=== PATIENT | male | born 1995 | race Caucasian/White ===

== ENCOUNTER 2018-01-21 10:59 | Emergency (ER) | payer OTHER, MEDICAID, SELFPAY ==
[2018-01-21 11:10] VITALS: BP 116/71; PULSE 73; RESP 18; TEMP 36.3; O2SAT 98; BMI 32.5
--- NOTE | 2018-01-21 11:32 | PC.NURSE ---
genital evaluation, deferred to physician.
[2018-01-21 11:41] LABS: RBC Urine None Seen (0-5/HPF)
--- NOTE | 2018-01-21 11:47 | ED_ITS ---
HPI - Male Genitourinary General Chief complaint: Urogenital-Male Stated complaint: DOUBLE EAR INFECTION,GUSTAVO ON FIRE Time Seen by Provider: 01/21/18 11:06 Source: patient Mode of arrival: ambulatory Limitations: no limitations History of Present Illness HPI Narrative: 22-year-old male here for evaluation of bilateral ear pain concern for ear infection and also approximately 1 month of dysuria and burning at the tip of his penis. Patient states that he has been treated multiple times for bilateral ear infections. He states that despite the antibiotics things have not improved all that much. He has been told he needs to see ear nose and throat however due to issues with primary care he has not done this. He also states that over the past month he has been tested 2 times for gonorrhea and chlamydia and also HIV. He reports that these have all come back negative. I do not have these reports for evaluation. He states that his last sexual intercourse was oral sex approximately 2 weeks ago. Does describe a fullness in his right groin. Has been treated for epididymitis in the past. No lesions noted on the penis or the scrotum. No prior history of sexually transmitted diseases. Related Data Home Medications Medication Instructions Recorded Confirmed No Known Home Medications 01/21/18 01/21/18 Allergies Allergy/AdvReac Type Severity Reaction Status Date / Time No Known Drug Allergies Allergy Verified 01/21/18 12:52 Review of Systems Constitutional Denies fatigue, Denies lethargy and Denies malaise ENT Ears, Nose, Mouth, and Throat: Denies vertigo and Denies dizziness Comments: Bilateral ear fullness and itching Cardiovascular Denies chest pain, Denies syncope and Denies dyspnea Respiratory Denies dyspnea Gastrointestinal Gastrointestinal: Denies diarrhea, Denies nausea and Denies vomiting Genitourinary Comments: Burning at the tip of his penis No discharge No lumps Fullness in his right groin Integumentary/Breasts Denies pruritus, Denies erythema, Denies rash and Denies wounds Neurologic Denies vertigo, Denies dizziness and Denies syncope Endocrine Denies fatigue [facility] Social History Smoking Status: Never smoker Exam Initial Vital Signs Initial Vital Signs: Vital Signs Temperature 97.4 F L 01/21/18 11:10 Pulse Rate 73 01/21/18 11:10 Respiratory Rate 18 01/21/18 11:10 Blood Pressure 116/71 01/21/18 11:10 Pulse Oximetry 98 01/21/18 11:10 Const General: cooperative, healthy appearing, comfortable and well developed Nutritional Appearance: well nourished Orientation: alert, awake, oriented x3 and not confused [facility] Head: normal to inspection, normocephalic and atraumatic Ears: other (Bilateral external auditory canals are impacted with cerumenThis was removedTympanic membranes appeared normal) Resp Effort & Inspection: normal respiratory effort Auscultation: clear to auscultation bilaterally Cardio Rate: regular rate Rhythm: regular rhythm Pulses: radial pulses present GI Inspection: non-distended Palpation: soft, No firm and No guarding Other: Scrotal normal Bilateral testicles descended without tenderness normal lie positive cremasteric reflex No lesions noted No drainage from the meatus No hernia felt Circumcised Back/Spine/Pelvis Back: No CVA tenderness Skin Lesions: no lesions noted Rashes: no rashes noted Course Orders Ordered: ED Orders 01/21/18 11:30 Urine Microscopic Stat 01/21/18 12:25 Urine Chlamydia Gonorrhea PCR Stat Urine Culture Stat Discontinued Medications Azithromycin (Zithromax) 1,000 mg PO NOW ONE Stop: 01/21/18 12:21 Ceftriaxone Sodium (Rocephin) 250 mg IM NOW ONE Stop: 01/21/18 12:21 Vital Signs - 8 hr 01/21/18 11:10 Temperature 97.4 F L Pulse Rate 73 Respiratory Rate 18 Blood Pressure 116/71 Pulse Oximetry 98 MDM - Male Genitourinary Lab Data Attestation: I reviewed the patient's lab results. Lab Results 01/21/18 Range/Units 11:30 Urine RBC None seen (0-5/HPF) Urine WBC 0-1/hpf (0-5/HPF) Ur Squamous Epith Cells 0-1 /hpf Urine Bacteria Few (2-10) H (None) Urine Mucus 3+ H (Negative) Ur Culture Indicated? Cult not indicated Micro UA Comment Not Reportable [facility] Narrative Medical decision making narrative: How long discussion with the patient regarding his symptoms. His point of care urinalysis was negative for nitrite leukocyte Estrace. Micro was positive for bacteria. Patient also has had 2 multiple negative gonorrhea and chlamydia testing over the past month per his report. We had a long discussion regarding his risks of sexually transmitted infections. We discussed options to include culturing his urine for both gonorrhea and chlamydia and also for a urinary tract infection waiting on any antibiotics. He states that this is what they did approximately 1 month ago and his symptoms are not improved. We also discussed presumptively treating him for gonorrhea and chlamydia today. He opted for treatment. We did culture his urine and informed him that we would call him for any positive results. He was also informed that he could contact medical records here for results. His physical exam is not consistent with acute otitis media. Cerumen was removed from bilateral external auditory canals and they were read afterwards however I feel this is secondary to the cerumen in his canal and not otitis externa. I discussed all this with the patient. He expressed understanding and agreement with plan. Discharge Plan Departure Patient Disposition: Home, Self-Care Clinical Impression: Dysuria, Bilateral impacted cerumen Instructions: DI for Cerumen Impaction, How to Detect and Treat STDs Activity Restrictions/Additional Instructions: Recommend that you may contact with a local provider to continue with your medical health. A urine culture was obtained today. It does take 2-3 days for this culture to return. We will call you for any positive results. We will not call you if the results are negative. Return to the emergency department for any new or worsening symptoms Prescriptions: No Action No Known Home Medications RF: 0
[2018-01-21 11:54] LABS: Bacteria Urine Few (2-10); Culture Indicated Urine Cult Not Indicated; Mucus Urine 3+ (Negative); Squamous Epithelial Cell Urine 0-1 /HPF; WBC Urine 0-1/HPF (0-5/HPF)
[2018-01-21] MEDS: AZITHROMYCIN 250 MG TABLET 1000 MG PO (12:52)
[2018-01-21] MEDS: cefTRIAXone 500 MG VIAL 250 MG IM (12:53)
[2018-01-21 13:47] VITALS: BP 117/77; PULSE 68; RESP 14; O2SAT 100
[2018-01-21 14:12] LABS: Urine N gonorrhoeae NOT DETECTED
[2018-01-21 14:13] LABS: Urine Chlamydia NOT DETECTED
== END 2018-01-21 13:58 | disposition home or self-care (01) ==
PROVIDERS: Emergency Provider Emergency Medicine
DX: R30.0 Dysuria (principal); H61.23 Impacted cerumen, bilateral
CPT/HCPCS: 81003; 81015; 87086; 87491; 87591; 96372; 99282; 99283; J0696

== ENCOUNTER 2018-11-21 13:01 | Emergency (ER) | payer SELFPAY ==
[2018-11-21 13:14] VITALS: BP 117/66; PULSE 75; RESP 18; TEMP 36.4; O2SAT 100; BMI 32.4
--- NOTE | 2018-11-21 13:19 | ED.SKABFB ---
HPI - Skin/Abscess/Foreign Bdy <PAULA Hyde - Last Filed: 11/21/18 13:27> General Chief complaint: Skin/Abscess/Foreign Body Stated complaint: Painful lump on upper left thigh Time Seen by Provider: 11/21/18 13:14 Source: patient Mode of arrival: ambulatory Limitations: no limitations History of Present Illness HPI narrative: swelling to L buttock, x2 weeks, had same thing before about 6 mos ago, went to dr, and he did abx, can't remember the name and it went away, so he figured he needed abx again complaint: abscess/boil Onset (ago): week(s) (2) Location: buttocks (L) Severity: similar to previous episodes Relieving factors: none Exacerbating factors: palpation Associated symptoms: denies other symptoms Treatments prior to arrival: none Related Data Previous Rx's Medication Instructions Recorded ibuprofen 800 mg PO TID PRN #20 tab 11/21/18 sulfamethoxazole-trimethoprim 1 tab PO BID #20 tab 11/21/18 [Bactrim DS] Allergies Allergy/AdvReac Type Severity Reaction Status Date / Time No Known Drug Allergies Allergy Verified 01/21/18 12:52 Review of Systems <PAULA Hyde - Last Filed: 11/21/18 13:27> Review of Systems ROS Unobtainable: All systems reviewed & are unremarkable except as noted in HPI and below Constitutional Reports as per HPI and Reports system reviewed and no additional complaints, except as docu Musculoskeletal Reports as per HPI, Reports abnormal gait, Denies deformity, Reports limited range of motion, Denies muscle weakness and Denies numbness Integumentary/Breasts Reports as per HPI, Denies unusual bruising, Denies wounds and Reports other Neurologic Reports abnormal gait and Denies numbness PFSH <PAULA Hyde - Last Filed: 11/21/18 13:27> Social History Smoking Status: Never smoker Social History Smoking Status: Never smoker Exam <PAULA Hyde - Last Filed: 11/21/18 13:27> Initial Vital Signs Initial Vital Signs: Vital Signs Temperature 97.6 F 11/21/18 13:14 Pulse Rate 75 11/21/18 13:14 Respiratory Rate 18 11/21/18 13:14 Blood Pressure 117/66 11/21/18 13:14 Pulse Oximetry 100 11/21/18 13:14 Const General: cooperative, healthy appearing, comfortable, well developed and well groomed Orientation: alert, awake and oriented x3 HENMT Head: normal to inspection and normocephalic Ears: hearing grossly normal bilaterally Nose: external nose normal Face and sinus: normal facial exam Eyes General: appearance normal, both eyes and all related structures Visual Abrams: normal visual abrams by confrontation Eyelids: eyelids normal Pupils: PERRL Neck Neck: normal visual inspection, full ROM and trachea midline Resp Effort & Inspection: normal respiratory effort and able to speak in complete sentences Back/Spine/Pelvis Back: normal to inspection Cervical Spine: cervical ROM normal Thoracic/Lumbar Spine: thoraco-lumbar ROM normal Skin General: no rashes or lesions noted, elasticity normal, turgor normal, erythema, fluctuance and other (1cm fluctulant abscess palpated to inside L buttock, tender to touch, with ) Rashes: no rashes Other: some warmth and tenderness, surrounding mild erythema Neuro General: alert, awake and oriented x3 Cranial Nerves: CN's II-XI intact bilaterally Cognition: normal cognition Speech: speech normal Motor: muscle tone normal throughout Sensory Exam: no sensory deficits noted Extrem General: normal to inspection, full ROM, capillary refill normal and limp Right upper extremity: normal to inspection and full ROM Left upper extremity: normal to inspection and full ROM Right lower extremity: normal to inspection and full ROM Left lower extremity: normal to inspection and full ROM Psych Appearance: grossly normal and well kempt Mental Status: mental status grossly normal Mood: congruent mood Affect: normal affect Attitude: cooperative Thought Process: normal Thought Content: normal Judgment: judgment good <Roro Keita DO - Last Filed: 11/21/18 19:20> Initial Vital Signs Initial Vital Signs: Vital Signs Temperature 97.6 F 11/21/18 13:14 Pulse Rate 75 11/21/18 13:14 Respiratory Rate 18 11/21/18 13:14 Blood Pressure 117/66 11/21/18 13:14 Pulse Oximetry 100 11/21/18 13:14 Course <PAULA Hyde - Last Filed: 11/21/18 13:27> Course Narrative: recommended I&D as best form of treatment, pt declined, explained procedure in detail and pt again declined, agreed to rx abx as he requested and instructed to use heat to area several times a day Vital Signs - 8 hr 11/21/18 13:14 Temperature 97.6 F Pulse Rate 75 Respiratory Rate 18 Blood Pressure 117/66 Pulse Oximetry 100 <Roro Keita DO - Last Filed: 11/21/18 19:20> Vital Signs - 8 hr 11/21/18 13:14 Temperature 97.6 F Pulse Rate 75 Respiratory Rate 18 Blood Pressure 117/66 Pulse Oximetry 100 MDM - Skin/Abscess/Foreign Bdy <PAULA Hyde - Last Filed: 11/21/18 13:27> Differential Diagnosis Likely abscess of skin or subcutaneous tissue, dermatophytosis, herpes zoster, cellulitis, eczema, insect bites, impetigo, contact dermatitis and other (folliculitis) Discharge Plan Departure Patient Disposition: Home Clinical Impression: Abscess of skin or subcutaneous tissue Discharge Date/Time: 11/21/18 13:34 Interventions: ED Discharge Assessment Last Done: 11/21/18 13:33 Instructions: DI for Skin Abscess Activity Restrictions/Additional Instructions: heat to affected area several times daily Prescriptions: New ibuprofen 800 mg tablet 800 mg PO TID PRN (Reason: pain) Qty: 20 RF: 0 sulfamethoxazole-trimethoprim [Bactrim DS] 800-160 mg tablet 1 tab PO BID Qty: 20 RF: 0 Referrals: Ellen Flores MD [Non-Staff] - Kelsey Westfall ARNP [Non-Staff] - Sadiq Connell MD [Non-Staff] - Roshni Juárez DO [Physician] - Gabe Muñoz MD [Non-Staff] - (follow up recommended in 2-3 days for recheck) <Roro Keita DO - Last Filed: 11/21/18 19:20> Cosign ED Attending Cosignature Attestation: I was immediately available in the department for consultation. This documentation has been reviewed and I agree with assessment and plan. Supervised by Roro Keiat DO
== END 2018-11-21 13:34 | disposition home or self-care (01) ==
PROVIDERS: Emergency Provider Nurse Practitioner
DX: L02.91 Cutaneous abscess, unspecified (principal)
CPT/HCPCS: 99282; 99283

== ENCOUNTER 2019-12-01 12:14 | Emergency (ER) | payer OTHER, SELFPAY ==
[2019-12-01 12:24] VITALS: BP 138/90; PULSE 72; RESP 13; TEMP 36.7; O2SAT 100; BMI 31.6
--- NOTE | 2019-12-01 12:44 | ED.MALEGU ---
HPI - Male Genitourinary <PAULA Roper - Last Filed: 12/01/19 18:05> General Chief complaint: Urogenital-Male Stated complaint: std testing Time Seen by Provider: 12/01/19 12:17 Source: patient Mode of arrival: Ambulatory Limitations: no limitations History of Present Illness HPI Narrative: 24-year-old male with a history of anxiety and smoking, reports emergency department for STD screening. He states he was sexually active with a partner 2 months ago and was told today that he was diagnosed with syphilis. Patient is requesting STD testing including HIV and hepatitis screening. Patient states approximately 2 months ago he developed a small amount of dysuria that resolved within 1-2 days. Patient also reports a sharp stabbing 2/10 constant left sided rib pain that started 2-3 months ago he states it is worse when he presses on it or moves in a certain way. He denies any trauma to the area. He states it occurred when he was laughing and drinking beer with his friends. He denies any other symptoms such as lesions, penile discharge, fevers, chills, nausea, vomiting, diarrhea, any other concerns. Related Data Previous Rx's Medication Instructions Recorded ibuprofen 800 mg PO TID PRN #20 tab 11/21/18 sulfamethoxazole-trimethoprim 1 tab PO BID #20 tab 11/21/18 [Bactrim DS] Allergies Allergy/AdvReac Type Severity Reaction Status Date / Time No Known Drug Allergies Allergy Verified 12/01/19 12:27 Review of Systems <PAULA Roper - Last Filed: 12/01/19 18:05> Review of Systems Narrative: REVIEW OF SYSTEMS: GENERAL: Denies fever or chills. HENT: No head trauma. EYES: No double vision or vision loss. CARDIOVASCULAR: No syncope. RESPIRATORY: No shortness of breath or cough. GASTROINTESTINAL: No nausea, vomiting, diarrhea, or constipation. GENITOURINARY: Reports history of dysuria which has resolved, see HPI. MUSCULOSKELETAL: Complains of rib pain, see HPI. INTEGUMENTARY: No rash, lesions, or pruritus. NEURO: No numbness, tingling. PSYCH: No behavior or mood changes. Patient History <PAULA Roper - Last Filed: 12/01/19 18:05> Medical History Anxiety (Acute) Social History Smoking Status: Former smoker Smoking Status: Former smoker alcohol intake frequency: holidays/special occasions only Substance Use Type: does not use Exam <PAULA Roper - Last Filed: 12/01/19 18:05> Initial Vital Signs Initial Vital Signs: Vital Signs Temperature 98.0 F 12/01/19 12:24 Pulse Rate 72 12/01/19 12:24 Respiratory Rate 13 12/01/19 12:24 Blood Pressure 138/90 12/01/19 12:24 Pulse Oximetry 100 12/01/19 12:24 PHYSICAL EXAMINATION: GENERAL: Well groomed, alert, and cooperative. Answers questions promptly and appropriately. Vital signs noted. HENT: Normocephalic, atraumatic. Ear canals patent. Oral mucosa is pink and moist. EYES: Conjunctiva pink, sclera white, no periorbital swelling. CHEST: Tenderness to palpation of right mid sternal costal border. No rashes. CARDIOVASCULAR: S1 and S2 sounds normal. Regular rate and rhythm, no murmurs, clicks, or bruits. No pedal edema. RESPIRATORY: Normal respiratory rate, trachea midline, airway patent. No stridor, nasal flaring or accessory muscle use. Lungs are clear in all huynh without wheeze, rhonchi, or crackles. MUSCULOSKELETAL: Normal gait and coordination. Equal tone and mass bilaterally. EXTREMITIES: CMS intact. Moves all extremities. SKIN: Warm, dry, soft, appropriate color for ethnicity. No lesions, rashes, or wounds. NEURO: Alert and Oriented X 3. Good coordination. No ataxia, or sensory deficits, or cognitive issues. PSYCH: Appropriate affect and mood. <Duane Boateng MD - Last Filed: 12/01/19 18:20> Initial Vital Signs Initial Vital Signs: Vital Signs Temperature 98.0 F 12/01/19 12:24 Pulse Rate 72 12/01/19 12:24 Respiratory Rate 13 12/01/19 12:24 Blood Pressure 138/90 12/01/19 12:24 Pulse Oximetry 100 12/01/19 12:24 Scores <PAULA Roper - Last Filed: 12/01/19 18:05> PERC Score Age greater than or equal to 50 years: No Heart rate greater than or equal to 100 bpm: No Room Air O2 Sat less than 95%: No Unilateral leg swelling: No Recent trauma or surgery: No Hemoptysis: No Prior PE or DVT: No Hormone Use: No Total PERC Score: 0 Wells' Criteria for PE Clinical signs and symptoms of DVT: No PE is #1 Dx or equally likely: No Heart rate > 100: No Immobilization at least 3 days or surg in previous 4 weeks: No History of PE or DVT: No Hemoptysis: No Malignancy w/Treatment within 6 months or palliative: No Wells' PE Score total: 0 Course <PAULA Roper - Last Filed: 12/01/19 18:05> Course Course Narrative: Patient was informed of hepatitis C and HIV test results before discharge. Due to mixup with urine, patient opted to be discharged before chlamydia and gonorrhea tests were resulted, agreed to be called with results. Orders Ordered: ED Orders 12/01/19 12:42 HIV 1 & 2 Ab/Ag 4th Gen Combo Stat Hepatitis C Virus Antibody Stat Herpes Simp Virus 1&2 IgG Stat RPR W Reflex to Titer Stat 12/01/19 16:23 Chlamydia Gonorrhea PCR -URINE Stat Vital Signs Vital signs: Vital Signs - 8 hr 12/01/19 12:24 12/01/19 16:30 Temperature 98.0 F Pulse Rate 72 63 Respiratory Rate 13 16 Blood Pressure 138/90 Blood Pressure [Right Arm] 122/87 Pulse Oximetry 100 97 <Duane Boateng MD - Last Filed: 12/01/19 18:20> Orders Ordered: ED Orders 12/01/19 12:42 HIV 1 & 2 Ab/Ag 4th Gen Combo Stat Hepatitis C Virus Antibody Stat Herpes Simp Virus 1&2 IgG Stat RPR W Reflex to Titer Stat 12/01/19 16:23 Chlamydia Gonorrhea PCR -URINE Stat Vital Signs Vital signs: Vital Signs - 8 hr 12/01/19 12:24 12/01/19 16:30 Temperature 98.0 F Pulse Rate 72 63 Respiratory Rate 13 16 Blood Pressure 138/90 Blood Pressure [Right Arm] 122/87 Pulse Oximetry 100 97 MDM - Male Genitourinary <PAULA Roper - Last Filed: 12/01/19 18:05> Medical Records Attestation: I reviewed the patient's medical records. Lab Data Attestation: I reviewed the patient's lab results. Labs: Lab Results 12/01/19 12/01/19 12/01/19 Range/Units 12:42 12:42 16:23 Ur Chlamydia DNA (PCR) Not detected Hepatitis C Antibody Negative (NEGATIVE) s/c HIV 1&2 Ab/P24 Ag 4thGn Negative (NEGATIVE) N gonorrhoeae DNA (PCR) Not detected Urine Dip Bedside Urine Glucose Negative Bedside Urine Bilirubin - Negative Bedside Urine Ketone - Negative Urine Specific [place] 1.015 Bedside Urine Occult Blood - Negative Bedside Urine pH 7.0 Bedside Urine Protein - Negative Bedside Urine Urobilinogen - Negative Bedside Urine Nitrite - Negative Bedside Urine Leukocytes - Negative Esterase MDM Narrative Medical decision making narrative: 24-year-old male reports emergency department requesting STD testing. He reports unprotected sexual contact about 2 months ago, spoke with a partner today that was diagnosed with syphilis. Patient requesting testing for all STDs including HIV and hepatitis. Explained to patient that some of these lab results will take a few days to come back and we will call with results, patient was agreeable. Patient denies any symptoms, last sexual contact was 2 months ago, partner was diagnosed with syphilis today, so I did not treat this patient preemptively. However, patient was instructed to abstain from sexual activities until tests were resulted. I suspect patient's sharp stabbing chest pain is most likely costochondritis due to increased tenderness with palpation to the costal sternal border, reports a sharp chest pain, ongoing pain for a long duration, and careful history. Less likely cardiac in nature due to lack of other symptoms such as shortness of breath, chest pain that is not worse with activity, pain is reproducible on palpation and patient has low risk factors. Less likely respiratory etiology due to lack of other symptoms such as dry cough, wheezing, shortness of breath, or viral symptoms such as rhinorrhea or fever. Less likely PE as patient denies any shortness of breath and has low risk factors, negative PERC and Wells criteria scores. Patient was encouraged to take ibuprofen and follow up with his primary care provider if symptoms continue or return emergency department if symptoms worsen at any point. Patient agreed to plan of care verbalized understanding. <Duane Boateng MD - Last Filed: 12/01/19 18:20> Lab Data Labs: Lab Results 12/01/19 12/01/19 12/01/19 Range/Units 12:42 12:42 16:23 Ur Chlamydia DNA (PCR) Not detected Hepatitis C Antibody Negative (NEGATIVE) s/c HIV 1&2 Ab/P24 Ag 4thGn Negative (NEGATIVE) N gonorrhoeae DNA (PCR) Not detected Urine Dip Bedside Urine Glucose Negative Bedside Urine Bilirubin - Negative Bedside Urine Ketone - Negative Urine Specific [place] 1.015 Bedside Urine Occult Blood - Negative Bedside Urine pH 7.0 Bedside Urine Protein - Negative Bedside Urine Urobilinogen - Negative Bedside Urine Nitrite - Negative Bedside Urine Leukocytes - Negative Esterase Discharge Plan Departure Patient Disposition: Home Clinical Impression: Screen for STD (sexually transmitted disease), Costochondritis Discharge Date/Time: 12/01/19 16:34 Instructions: Facts About Sexually Transmitted Infections, DI for Costochondritis Activity Restrictions/Additional Instructions: Thank you for entrusting me with your care today. As discussed, your HIV test was negative. There was a mixup in the lab about your gonorrhea and chlamydia, we will call with results. It may take a few days for the syphilis, herpes, and hepatitis test to results. We will call when these results are back. Please abstain from any sexual activity until your results are back and (if present) infections or treated. Additionally, I believe you have costochondritis which is an inflammation of the cartilage between your ribs and chest bone. I recommend taking 400-600 mg of ibuprofen every 6 hours for the next 3 days to help with this pain. Please follow up with your primary care provider in 1-2 weeks for further evaluation if symptoms continue. Return emergency department for any new or worsening symptoms. Prescriptions: No Action ibuprofen 800 mg tablet 800 mg PO TID PRN (Reason: pain) Qty: 20 RF: 0 sulfamethoxazole-trimethoprim [Bactrim DS] 800-160 mg tablet 1 tab PO BID Qty: 20 RF: 0
--- NOTE | 2019-12-01 13:00 | PC.NURSE ---
Pt states that he had sex with a person 1 month ago who was just tested positive for syphilis. Pt denies any presence of noticeable chancre. He does say that he has burning from the tip of his urethra in the morning and at night but denies any discharge or other swelling in his genitals. He does say that he has itching around his pubis symphesis and inguinal areas bilaterally.
--- NOTE | 2019-12-01 15:00 | PC.NURSE ---
Called lab to check on the status of the pt's urine test. I was told that the test had an hour left before the results would be done.
[2019-12-01 16:16] LABS: HIV 1 & 2 Ab/Ag 4th Gen Combo NEGATIVE (NEGATIVE)
--- NOTE | 2019-12-01 16:18 | PC.NURSE ---
Called lab to check on results. Spoke with two people who state they went through all of the urines and did not find any for this patient. States they have never had a test running nor do they have any urine that they can run on this patient. Asked pt for more urine. states unable to urinate at this time. Charge nurse and Leticia Evans made aware.
[2019-12-01 16:19] LABS: Hep C Virus Ab w/Reflex Quant NEGATIVE s/c (NEGATIVE)
[2019-12-01 16:30] VITALS: BP 122/87; PULSE 63; RESP 16; O2SAT 97
[2019-12-01 17:55] LABS: Urine N gonorrhoeae NOT DETECTED
[2019-12-01 17:56] LABS: Urine Chlamydia NOT DETECTED
[2019-12-02 02:36] LABS: Hepatitis B Surf Ab Qualitativ Non Reactive (.)
[2019-12-02 05:14] LABS: RPR Screen Non Reactive (Non Reactive)
[2019-12-02 06:03] LABS: HSV 2 IGG AB < 0.91 index (0.00-0.90)
== END 2019-12-01 16:34 | disposition home or self-care (01) ==
PROVIDERS: Emergency Provider Nurse Practitioner
DX: Z20.2 Contact with and (suspected) exposure to infections with a predominantly sexual mode of transmission (principal); M94.0 Chondrocostal junction syndrome [Tietze]
CPT/HCPCS: 36415; 81003; 86592; 86695; 86696; 86706; 86803; 87389; 87491; 87591; 99282

== ENCOUNTER 2020-02-22 12:40 | Emergency (ER) | payer OTHER, MEDICAID, SELFPAY ==
[2020-02-22 12:49] VITALS: BP 136/81; PULSE 83; RESP 20; TEMP 36.8; O2SAT 96
[2020-02-22 13:30] VITALS: BP 124/77; PULSE 57; RESP 19; O2SAT 96
--- NOTE | 2020-02-22 13:44 | ED.ABDPAIN ---
HPI - Abdominal Pain General Chief Complaint: Abdominal Pain Stated Complaint: abd pain/stomach turning yellow Time Seen by Provider: 02/22/20 13:17 Source: patient Mode of arrival: Ambulatory Limitations: no limitations History of Present Illness HPI narrative: PATIENT IS A 24-YEAR-OLD MALE WHO PRESENTS WITH ABDOMINAL CRAMPING ONGOING FOR ABOUT A WEEK. HE FEELS LIKE HIS UPPER ABDOMEN IS BRUISED. HE DENIES ANY RADIATION TO HIS CHEST HE SOMETIMES FEELS NAUSEOUS BUT NO VOMITING HE HAS HAD NORMAL BOWEL MOVEMENTS. HE DENIES ANY FEVER. HE DID TAKE SOME IBUPROFEN 3 DAYS IN A ROW TO SEE IF IT WOULD HELP WITH PAIN IT DID NOT. HE DOES NOT REGULARLY USE NSAIDS. MD complaint: abdominal pain Onset (ago): week(s) Pain Consistency: constant Location: diffuse Severity: mild Quality: cramping Radiation: none Migration to: no migration Relieving factors: nothing Related Data Previous Rx's Medication Instructions Recorded ibuprofen 800 mg PO TID PRN #20 tab 11/21/18 sulfamethoxazole-trimethoprim 1 tab PO BID #20 tab 11/21/18 [Bactrim DS] Allergies Allergy/AdvReac Type Severity Reaction Status Date / Time No Known Drug Allergies Allergy Verified 12/01/19 12:27 Review of Systems Review of Systems Narrative: GENERAL: Denies chills, fatigue, malaise, fever, sweats, travel HEENT: Denies sinus pain, ear pain, sore throat, difficulty swallowing, neck pain RESPIRATORY: Denies dyspnea, cough, wheezing, hemoptysis, sputum. CARDIOVASCULAR: Denies chest pain, palpitations, orthopnea, edema GASTROINTESTINAL: See HPI : Denies dysuria, frequency, incontinence, hematuria, urinary retention, flank pain. MUSCULOSKELETAL: Denies weakness, joint pain, or bony pain SKIN: No rash, no erythema, no pruritus NEUROLOGIC: Denies weakness, dizziness, headache, numbness, change in speech, confusion PSYCHIATRIC: No concerning psychosocial issues. 12 point review of systems is negative except for those stated above and HPI Patient History Medical History Anxiety (Acute) Social History Smoking Status: Former smoker Smoking Status: Former smoker alcohol intake frequency: holidays/special occasions only Substance Use Type: does not use Exam Initial Vital Signs Initial Vital Signs: Vital Signs Temperature 98.2 F 02/22/20 12:49 Pulse Rate 83 02/22/20 12:49 Respiratory Rate 20 02/22/20 12:49 Blood Pressure 136/81 02/22/20 12:49 Pulse Oximetry 96 02/22/20 12:49 GENERAL: Well-appearing, well-nourished and in no acute distress. HEENT: Head atraumatic,EOMI, pupils reactive, face symmetric, moist mucous membranes CARDIOVASCULAR: Regular rate and rhythm without murmurs, rubs or gallops. RESPIRATORY: Breath sounds equal bilaterally, no wheezes rales or rhonchi. ABDOMEN: Soft, tender right upper quadrant no guarding or rebound EXTREMITIES: Normal range of motion, no clubbing or edema. Neurovascularly intact NEUROLOGICAL: Alert and oriented x4.Normal gait and speech. Cranial nerves II through XII grossly intact. SKIN: Yellowing area thin across abdomen between umbilicus and diaphragm. Nontender no swelling. Warm, dry, no laceration, no petechiae, no rashes or lesions. Course Orders Ordered: ED Orders 02/22/20 13:30 Complete Blood Count AUTO DIFF Stat Comprehensive Metabolic Panel Stat Lipase Stat 02/22/20 13:51 US abdomen limited Stat Discontinued Medications Sodium Chloride (Normal Saline 0.9%) 1,000 mls @ 1,000 mls/hr IV BOLUS ONE Stop: 02/22/20 14:35 Last Infusion: 02/22/20 14:53 Dose: 0 mls/hr Documented by: Admin: 02/22/20 14:16 Dose: 1,000 mls/hr Documented by: MEENU Ketorolac Tromethamine (Toradol) 30 mg IV NOW ONE Stop: 02/22/20 13:52 Last Admin: 02/22/20 14:16 Dose: 30 mg Documented by: MEENU Ondansetron HCl (Zofran) 4 mg IV NOW ONE Stop: 02/22/20 13:37 Last Admin: 02/22/20 14:17 Dose: 4 mg Documented by: MEENU Pantoprazole Sodium (Protonix) 40 mg IV NOW ONE Stop: 02/22/20 13:52 Last Admin: 02/22/20 14:16 Dose: 40 mg Documented by: MEENU Vital Signs Vital signs: Vital Signs - 8 hr 02/22/20 12:49 07/22/20 13:30 02/22/20 14:00 Temperature 98.2 F Pulse Rate 83 57 L 62 Respiratory Rate 20 19 18 Blood Pressure 136/81 124/77 109/67 Pulse Oximetry 96 96 97 02/22/20 14:30 Temperature Pulse Rate 60 Respiratory Rate Blood Pressure 102/64 Pulse Oximetry 97 MDM - Abdominal Pain Lab Data Attestation: I reviewed the patient's lab results. Result diagrams: 02/22/20 13:30 02/22/20 13:30 Labs: Lab Results 02/22/20 02/22/20 02/22/20 Range/Units 13:30 13:30 13:30 WBC 3.1 L (4.5-11.0) X10^3/uL RBC 4.55 (4.5-5.9) X10^6/uL Hgb 14.1 (13.5-17.5) g/dL Hct 40.7 L (41-53) % MCV 89.5 (80-100) fL MCH 30.9 (26-34) PG MCHC 34.6 (30-36) % RDW 13.1 (11.6-14.8) % Plt Count 121 L (150-400) X10^3/uL Neut % (Auto) 52.6 (50-75) % Lymph % (Auto) 35.3 (25-40) % Tillman % (Auto) 10.2 (3-14) % Eos % (Auto) 1.6 L (2-4) % Baso % (Auto) 0.3 (0-2) % Neut # (Auto) 1600 (5632-5162) /uL Lymph # (Auto) 1100 (0332-4525) /uL Tillman # (Auto) 300 (0-900) /uL Eos # (Auto) 0 (0-450) /uL Baso # (Auto) 0 (0-100) /uL Sodium 144 (137-145) mmol/L Potassium 4.2 (3.4-5.1) mmol/L Chloride 107 (98-107) mmol/L Carbon Dioxide 27 (22-32) mmol/L BUN 12 (9-20) mg/dL Creatinine 0.62 L (0.66-1.25) mg/dL Estimated GFR > 60.0 (>60) mL/min BUN/Creatinine Ratio 19.4 (6-22) Glucose 121 H (70-100) mg/dL Calcium 9.8 (8.4-10.2) mg/dL Total Bilirubin 0.6 (0.2-1.3) mg/dL AST 26 (17-59) IU/L ALT 24 (<50) IU/L Alkaline Phosphatase 46 (38-126) U/L Total Protein 7.2 (6.3-8.2) g/dL Albumin 4.5 (3.5-5.0) g/dL Globulin 2.7 (1.7-4.1) g/dL Albumin/Globulin Ratio 1.7 (1.0-2.8) Lipase 68 (23-300) U/L Point of care testing: Urine Dip Bedside Urine Glucose Negative Bedside Urine Bilirubin - Negative Bedside Urine Ketone - Negative Urine Specific Col[place] 1.015 Bedside Urine Occult Blood - Negative Bedside Urine pH 7.5 Bedside Urine Protein - Negative Bedside Urine Urobilinogen - Negative Bedside Urine Nitrite - Negative Bedside Urine Leukocytes - Negative Esterase Imaging Data US - abdomen: Radiologist's Impression: PROCEDURE: US ABDOMEN LIMITED INDICATIONS: RIGHT UPPER QUADRANT PAIN TECHNIQUE: Real-time scanning was performed of the abdominal and retroperitoneal organs, with image documentation. COMPARISON: None. FINDINGS: Liver: Liver is normal in size and homogeneous in echotexture. Gallbladder: The gallbladder is within normal limits. There is no cholelithiasis or evidence of gallbladder wall inflammation. Biliary ducts: Intrahepatic bile ducts are non-dilated. Extrahepatic bile duct caliber measures 6 mm. Normal is 6-7 mm or less in diameter, or 10 mm or less post-cholecystectomy. Pancreas: Obscured by bowel gas. Other: No free abdominal fluid. The right kidney was not adequately imaged. IMPRESSION: No cholelithiasis or cholecystitis. Dictated by: Ronak Lieberman M.D. on 02/22/2020 at 13:37 MDM Narrative Medical decision making narrative: Patient is minimally tender over a superficial bruise. Ultrasound of gallbladder is negative blood work is overall reassuring at this time is hemodynamically stable it has been there for a few days at this time I see no indication for any further imaging. Lipase is normal no signs or symptoms of pancreatitis. Discharge Plan Departure Patient Disposition: Home Clinical Impression: Contusion Qualifiers: Encounter type: initial encounter Contusion area: abdominal wall Qualified Code(s): S30.1XXA - Contusion of abdominal wall, initial encounter Discharge Date/Time: 02/22/20 14:54 Instructions: DI for Contusion Activity Restrictions/Additional Instructions: *You have been diagnosed with contusion *What to do: This should go away an at the next week. Your blood work and ultrasound are overall reassuring. *Continue to take medications as directed Ibuprofen 600 mg every 6-8 hours if needed for pain with food for 1 week *Follow up with your primary care provider in 2-3 days *Return to ER if you should have increasing pain, redness, persistent vomiting fever or any new, worsening or concerning symptoms Prescriptions: No Action ibuprofen 800 mg tablet 800 mg PO TID PRN (Reason: pain) Qty: 20 RF: 0 sulfamethoxazole-trimethoprim [Bactrim DS] 800-160 mg tablet 1 tab PO BID Qty: 20 RF: 0 Referrals: [facility] [Outside]
--- NOTE | 2020-02-22 13:51 | DI.US.S_ITS ---
PROCEDURE: US ABDOMEN LIMITED INDICATIONS: RIGHT UPPER QUADRANT PAIN TECHNIQUE: Real-time scanning was performed of the abdominal and retroperitoneal organs, with image documentation. COMPARISON: None. FINDINGS: Liver: Liver is normal in size and homogeneous in echotexture. Gallbladder: The gallbladder is within normal limits. There is no cholelithiasis or evidence of gallbladder wall inflammation. Biliary ducts: Intrahepatic bile ducts are non-dilated. Extrahepatic bile duct caliber measures 6 mm. Normal is 6-7 mm or less in diameter, or 10 mm or less post-cholecystectomy. Pancreas: Obscured by bowel gas. Other: No free abdominal fluid. The right kidney was not adequately imaged. IMPRESSION: No cholelithiasis or cholecystitis. Dictated by: Ronak Lieberman M.D. on 02/22/2020 at 13:37 Approved by: Ronak Lieberman M.D. on 02/22/2020 at 13:40
[2020-02-22 13:54] LABS: Add Manual Diff / Slide Review NO; Basophils Absolute Auto 0 /uL (0-100); Basophils Percent Auto 0.3 % (0-2); Eosinophils Absolute Auto 0 /uL (0-450); Eosinophils Percent Auto 1.6 % (2-4); Hematocrit 40.7 % (41-53); Hemoglobin 14.1 g/dL (13.5-17.5); Lymphocytes Absolute Auto 1100 /uL (1100-4500); Lymphocytes Percent Auto 35.3 % (25-40); Mean Corpuscular HGB Conc 34.6 % (30-36); Mean Corpuscular Hemoglobin 30.9 PG (26-34); Mean Corpuscular Volume 89.5 fL (80-100); Monocytes Absolute Auto 300 /uL (0-900); Monocytes Percent Auto 10.2 % (3-14); Neutrophils Absolute Auto 1600 /uL (1500-7000); Neutrophils Percent Auto 52.6 % (50-75); Platelet Count 121 X10^3/uL (150-400); Red Blood Cell Count 4.55 X10^6/uL (4.5-5.9); Red Cell Distribution Width 13.1 % (11.6-14.8); White Blood Cell Count 3.1 X10^3/uL (4.5-11.0)
[2020-02-22 14:00] VITALS: BP 109/67; PULSE 62; RESP 18; O2SAT 97
[2020-02-22 14:06] LABS: Lipase 68 U/L (23-300)
[2020-02-22 14:08] LABS: Alanine Aminotransferase 24 IU/L (<50); Albumin 4.5 g/dL (3.5-5.0); Albumin Globulin Ratio 1.7 (1.0-2.8); Alkaline Phosphatase 46 U/L (38-126); Aspartate Aminotransferase 26 IU/L (17-59); BUN Creatinine Ratio 19.4 (6-22); Bilirubin Total 0.6 mg/dL (0.2-1.3); Blood Urea Nitrogen 12 mg/dL (9-20); Calcium 9.8 mg/dL (8.4-10.2); Carbon Dioxide 27 mmol/L (22-32); Chloride 107 mmol/L (98-107); Estimated Glomerular Filt Rate > 60.0 mL/min (>60); Globulin 2.7 g/dL (1.7-4.1); Glucose 121 mg/dL (70-100); HEMOLYSIS 15 (0-50); Potassium 4.2 mmol/L (3.4-5.1); Sodium 144 mmol/L (137-145); Total Protein 7.2 g/dL (6.3-8.2)
[2020-02-22] MEDS: PANTOPRAZOLE 40 MG VIAL IV (14:16)
[2020-02-22] MEDS: KETOROLAC 60 MG/2 ML VIAL 30 MG IV (14:16)
[2020-02-22] MEDS: SODIUM CHLORIDE 0.9% 1,000 ML 1000 ML IV (14:16)
[2020-02-22] MEDS: ONDANSETRON 4 MG/2 ML INJ IV (14:17)
[2020-02-22 14:30] VITALS: BP 102/64; PULSE 60; O2SAT 97
== END 2020-02-22 14:54 | disposition home or self-care (01) ==
PROVIDERS: Emergency Provider Emergency Medicine
DX: S30.1XXA Contusion of abdominal wall, initial encounter (principal); R10.11 Right upper quadrant pain
CPT/HCPCS: 36415; 76705; 80053; 81003; 83690; 85025; 96361; 96374; 96375; 99284; C9113; J1885; J2405